=== PATIENT | male | born 1985 | race Caucasian/White ===

== ENCOUNTER 2020-02-03 09:04 | Emergency (ER) | payer MEDICAID ==
[~2020-02-03] VITALS: Ht 177.8 cm; Wt 60.8 kg
--- NOTE | 2020-02-03 09:27 | NUR ---
pt was coming down some stairs stumbled and fell and hit is ankle on the railing
[2020-02-03 09:36] VITALS: BP_DIAS 128
[2020-02-03] MEDS ORDERED: lisinopril 10 MG tablet PO ONE (09:40)
[2020-02-03] MEDS ORDERED: HYDROchlorothiazide 25mg tablet PO ONE (09:40)
[2020-02-03 09:52] VITALS: BP_SYST 166
[2020-02-03] MEDS ORDERED: HCTZ25T PO (09:59)
[2020-02-03] MEDS ORDERED: LISI-600 PO (09:59)
[2020-02-03] MEDS ORDERED: ketorolac tromethamine 15mg/ml inj. IM ONE (10:00)
== END 2020-02-03 10:08 | disposition home or self-care (01) ==
LOC: ER 09:05
DX: M25.571 Pain in right ankle and joints of right foot (principal); M25.471 Effusion, right ankle; I10 Essential (primary) hypertension; Z79.899 Other long term (current) drug therapy
CPT/HCPCS: 73610; 96372; 99284; J1885

== ENCOUNTER 2020-03-20 07:36 | Emergency (ER) | payer MEDICAID ==
[~2020-03-20] VITALS: Ht 177.8 cm; Wt 83.3 kg
[~2020-03-20 07:36] MED LIST: HCTZ25T PO
[2020-03-20 07:41] VITALS: BP 143/94
--- NOTE | 2020-03-20 09:19 | NUR ---
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
== END 2020-03-20 09:28 | disposition home or self-care (01) ==
LOC: ER 07:36
DX: J02.9 Acute pharyngitis, unspecified (principal); R51 Headache; Z20.828 Contact with and (suspected) exposure to other viral communicable diseases; F17.200 Nicotine dependence, unspecified, uncomplicated; Z79.899 Other long term (current) drug therapy
CPT/HCPCS: 36415; 87081; 87880; 99283; C9803; 87077

== ENCOUNTER 2020-03-28 19:48 | Emergency (ER) | payer MEDICAID ==
[~2020-03-28] VITALS: Ht 177.8 cm; Wt 85.0 kg
[2020-03-28] MEDS ORDERED: ondansetron/PF 4mg/2ml inj IV ONE (20:20)
[2020-03-28] MEDS ORDERED: normal saline 1000ML IV soln IVB ONE (20:20)
[2020-03-28] MEDS ORDERED: ketorolac trometh. 30mg/ml inj. IV ONE (20:20)
[2020-03-28 20:32] LABS: CLARITY,URINE CLEAR (Clear); COLOR,URINE YELLOW (Yellow); GLUCOSE, URINE NEGATIVE (Neg); KETONES,URINE NEGATIVE (Neg); LEUKOCYTE ESTERASE ,URINE NEGATIVE (Neg); NITRITES, URINE NEGATIVE (Neg); OCCULT BLOOD,URINE NEGATIVE (Neg); PH,URINE 7.5 (4.8-8.0); PROTEIN,URINE NEGATIVE (Neg); UROBILINOGEN,URINE 0.2 E.U/dL (0.2-1.0)
[2020-03-28 20:35] LABS: BASOPHILS # (AUTO) 0.2 X10'3 (0-0.2); BASOPHILS % (AUTO) 1.2 % (0-1); EOSINOPHILS # (AUTO) 0.4 X10'3 (0-0.9); EOSINOPHILS % (AUTO) 3.3 % (0-6); HEMATOCRIT 41.9 % (42.0-52.0); HEMOGLOBIN 13.7 g/dl (14.0-17.9); LYMPHOCYTES % (AUTO) 23.5 % (21-51); MEAN CORPUSCULAR HEMOGLOBIN 28.1 PG (27.0-31.0); MEAN CORPUSCULAR HGB CONC 32.7 g/dL (33.0-36.5); MEAN PLATELET VOLUME 7.7 FL (7.4-10.4); MONOCYTES # (AUTO) 1.3 X10'3 (0-0.9); PLATELET COUNT 298 X10'3 (140-440); RED BLOOD COUNT 4.87 X10'6 (4.70-6.10); RED CELL DISTRIBUTION WIDTH 15.6 % (11.5-14.5)
[2020-03-28 20:45] LABS: UA COLLECTION TYPE CLN CATCH MIDSTREAM
[2020-03-28 20:49] LABS: ALANINE AMINOTRANSFERASE 74 U/L (12-78); ALBUMIN 3.8 G/DL (3.4-5.0); ALBUMIN/GLOBULIN RATIO 1.2 (1.1-1.5); ALKALINE PHOSPHATASE 73 IU/L (46-116); ANION GAP 6 (8-16); ASPARTATE AMINO TRANSFERASE 29 U/L (10-37); BILIRUBIN,TOTAL 0.2 MG/DL (0.1-1.0); BLOOD UREA NITROGEN 21 MG/DL (7-18); BUN/CREATININE RATIO 18.3 (5.4-32.0); CALCIUM 8.4 MG/DL (8.5-10.1); CHLORIDE 109 MMOL/L (99-107); CREATININE 1.15 MG/DL (0.60-1.10); GLUCOSE 102 MG/DL (70-104); LIPASE 257 U/L (73-393); POTASSIUM 3.8 MMOL/L (3.5-5.1); SODIUM 141 MMOL/L (135-145); TOTAL CARBON DIOXIDE 25.7 MMOL/L (24-32); eGFR 72 ML/MIN
[2020-03-28] MEDS ORDERED: morphine 4 MG/ML inj SYRINge IV PRN (21:20)
[2020-03-28 21:28] VITALS: BP 144/90
== END 2020-03-28 21:30 | disposition home or self-care (01) ==
LOC: ER 19:49
DX: R10.31 Right lower quadrant pain (principal); R10.11 Right upper quadrant pain; Z72.89 Other problems related to lifestyle; Z79.899 Other long term (current) drug therapy
CPT/HCPCS: 36415; 74176; 80053; 81003; 83690; 85025; 96374; 96375; 99284; J1885; J2270; J2405; J7030

== ENCOUNTER 2020-04-17 22:24 | Emergency (ER) | payer MEDICAID ==
[~2020-04-17] VITALS: Ht 177.8 cm; Wt 75.0 kg
[2020-04-17] MEDS ORDERED: TETanus/Pertussis (Acell)/Diphther VAC/PF (Tdap-Adult) 0.5ml syringe IMVAC ONE (23:50)
[2020-04-17] MEDS ORDERED: LIDOcaine 1% W/epiNEPHrine 1:200,000 10ml vial IJ ONE (23:50)
[2020-04-18] MEDS ORDERED: CEPH-572 PO (00:14)
[2020-04-18] MEDS ORDERED: SULF1TAB49 PO (00:14)
[2020-04-18] MEDS ORDERED: sulfamethoxazole/trimethoprim DS (800/160mg) tablet PO ONE (00:15)
[2020-04-18] MEDS ORDERED: cephalexin 250mg capsule PO ONE (00:15)
[2020-04-18 00:22] VITALS: BP 142/105
== END 2020-04-18 00:23 | disposition home or self-care (01) ==
LOC: ER 22:25
DX: L02.31 Cutaneous abscess of buttock (principal); Z72.89 Other problems related to lifestyle; Z79.2 Long term (current) use of antibiotics; Z79.899 Other long term (current) drug therapy
CPT/HCPCS: 10060; 90471; 90715; 99283

== ENCOUNTER 2020-09-12 10:51 | Emergency (ER) | payer MEDICAID ==
[~2020-09-12] VITALS: Ht 177.8 cm; Wt 81.8 kg
[2020-09-12 10:53] VITALS: BP 158/107
[2020-09-12] MEDS ORDERED: LIDOcaine Viscous 15ml cup MM PRN (11:10)
[2020-09-12] MEDS ORDERED: IBUP-1984 PO (11:12)
[2020-09-12] MEDS ORDERED: LIDO20SO16 PO (11:12)
== END 2020-09-12 11:27 | disposition home or self-care (01) ==
LOC: ER 10:52
DX: S02.5XXA Fracture of tooth (traumatic), initial encounter for closed fracture (principal); Z79.899 Other long term (current) drug therapy; X58.XXXA Exposure to other specified factors, initial encounter; Y93.89 Activity, other specified; Y92.89 Other specified places as the place of occurrence of the external cause; Y99.8 Other external cause status
CPT/HCPCS: 99283